=== PATIENT | female | born 1980 | race Caucasian/White ===

== ENCOUNTER 2017-02-09 23:41 | Emergency (ER) | payer BC ==
[~2017-02-09] VITALS: Ht 175.3 cm; Wt 72.6 kg
[~2017-02-09 23:41] MED LIST: CYCLOBENZAPRINE10 MG ORAL; IBUPROFEN600 MG ORAL; LOESTRIN1 EAC1 PO
[2017-02-09 23:50] VITALS: BP 137/85
[2017-02-09] MEDS ORDERED: TESSALON PERLE100 MG ORAL (23:59)
[2017-02-10 00:20] VITALS: BP 137/85
--- NOTE | 2017-02-10 04:18 | Emergency Room Report ---
History of Present Illness General Chief Complaint: Upper Respiratory Illness Source: Patient Present Illness HPI 36-year-old female, cough for the last week, states that a week or 2 ago she had some fever chills and runny nose. Now just has a cough that is very annoying. No other complaints Allergies: Coded Allergies: No Known Allergies (Unverified , 05/10/14) Patient History Past Medical History: see triage record Past Surgical History: none Pertinent Family History: none Last Menstrual Period: jan 2017 Now: No Reviewed Nursing Documentation: PMH: Agreed, PSxH: Agreed Nursing Documentation-PMH Past Medical History: No Stated History Review of Systems All Other Systems: negative except mentioned in HPI Physical Exam Vital Signs Date Time Temp Pulse Resp B/P (MAP) Pulse Ox O2 Delivery O2 Flow Rate FiO2 02/09/17 23:46 97.7 76 16 137/85 97 Room Air Sp02 EP Interpretation: reviewed, normal General Appearance: normal inspection, well appearing, no apparent distress, alert, GCS 15, non-toxic Head: normocephalic, atraumatic Eyes: bilateral eye normal inspection, bilateral eye PERRL, bilateral eye EOMI ENT: normal ENT inspection, normal pharynx, normal voice, moist mucus membranes Neck: normal inspection, full range of motion, supple Respiratory: normal inspection, lungs clear, normal breath sounds, no respiratory distress, no retraction, no wheezing, speaking full sentences, chest symmetrical Cardiovascular #1: normal inspection, regular rate, rhythm, no edema, normal capillary refill Cardiovascular #2: 2+ radial (R), 2+ radial (L) Gastrointestinal: normal inspection, non tender, soft, non-distended, no guarding Musculoskeletal: normal inspection, back normal, normal range of motion, non- tender Neurologic: normal inspection, alert, oriented x3, responsive, motor strength/ tone normal, sensory intact, normal gait, speech normal Psychiatric: normal inspection, judgement/insight normal, memory normal Skin: normal inspection, normal color, no rash, warm/dry, well hydrated, normal turgor Medical Decision Making Diagnostic Impression: Primary Impression: Post-viral cough syndrome ER Course 36-year-old female with cough, no fever chills or runny nose DDX: Likely post viral cough Plan: None ER course: Patient remains nontoxic, not in resp distress. Disposition: Patient is to be discharged home with a prescription of Tessalon Perles Strict precautions discussed with patient on when to return to the emergency room including hemoptysis, high fevers, chills, SOB, chest pain which may indicate severe illness. Patient is to follow up with their primary care doctor within 5 days. Patient agrees with plan. Please note that this Emergency Department Report was dictated using [employer] technology software, occasionally this can lead to erroneous entry secondary to interpretation by the dictation equipment Last Vital Signs Date Time Temp Pulse Resp B/P (MAP) Pulse Ox O2 Delivery O2 Flow Rate FiO2 02/10/17 00:20 97.7 76 16 137/85 97 Room Air Disposition: HOME, SELF-CARE Condition: Stable Scripts Benzonatate* (TESSALON PERLE*) 100 Mg Capsule 100 MG ORAL THREE TIMES A DAY for 7 Days, #21 PERLE 0 Refills Prov: Maikel Alberts M.D. 02/09/17 Referrals: NON PHYSICIAN (PCP) Patient Instructions: Cough, Adult Maikel Alberts M.D. Feb 10, 2017 04:18
== END 2017-02-10 00:20 | disposition home or self-care (01) ==
LOC: EMR 23:59
DX: R05 Cough (principal); B34.9 Viral infection, unspecified; J06.9 Acute upper respiratory infection, unspecified
CPT/HCPCS: 99283